=== PATIENT | male | born 1980 | race Caucasian/White ===

== ENCOUNTER 2017-01-24 12:26 | Emergency (ER) | payer SELFPAY ==
--- NOTE | 2017-01-24 13:11 | ER Document Report ---
ED Medical Screen (RME) - General Stated Complaint: POSSIBLE FLU SYMPTOMS Notes: 36 yo flu like symptoms since yesterday. fever, bodyaches, cough, chills, dizzy. no flu shot this season TRAVEL OUTSIDE OF THE [place] IN LAST 30 DAYS: No - Related Data Allergies/Adverse Reactions: No Known Allergies Allergy (Verified 01/24/17 13:06) Physical Exam - Vital signs Vitals: Temp Pulse Resp BP Pulse Ox 98.4 F 85 18 137/83 H 96 01/24/17 12:38 01/24/17 12:38 01/24/17 12:38 01/24/17 12:38 01/24/17 12:38 Course - Vital Signs Vital signs: Temp Pulse Resp BP Pulse Ox 98.4 F 85 18 137/83 H 96 01/24/17 12:38 01/24/17 12:38 01/24/17 12:38 01/24/17 12:38 01/24/17 12:38
--- NOTE | 2017-01-24 14:42 | ER Document Report ---
ED General - General Mode of Arrival: Ambulatory Information source: Patient TRAVEL OUTSIDE OF THE [place] IN LAST 30 DAYS: No - HPI Patient complains to provider of: Fatigue and cold like symptoms Onset: Yesterday Associated symptoms: Other - see above - General Chief Complaint: Cold Symptoms Stated Complaint: POSSIBLE FLU SYMPTOMS Notes: 36 year old male with no prior medical problems presents to the ED complaining of fatigue and flu like symptoms (cough, congestion, rhinorrhea, and body aches ) since yesterday. Patient also reports a fever and states that he last took Tylenol at 2200 last night. Patient denies nausea, vomiting, and diarrhea. Patient does not have a primary care provider. (WALLY KESSLER) - Related Data Allergies/Adverse Reactions: No Known Allergies Allergy (Verified 01/24/17 13:06) Past Medical History - General Information source: Patient - Social History Smoking Status: Never Smoker Family History: Reviewed & Not Pertinent Patient has suicidal ideation: No Patient has homicidal ideation: No - Medical History Medical History: Negative Renal/ Medical History: Denies: Hx Peritoneal Dialysis Surgical Hx: Negative Review of Systems - Review of Systems Constitutional: See HPI, Fever, Malaise EENT: See HPI, Nose congestion, Nose discharge Cardiovascular: No symptoms reported Respiratory: No symptoms reported Gastrointestinal: No symptoms reported. denies: Diarrhea, Nausea, Vomiting Genitourinary: No symptoms reported Male Genitourinary: No symptoms reported Musculoskeletal: No symptoms reported Skin: No symptoms reported Hematologic/Lymphatic: No symptoms reported Neurological/Psychological: No symptoms reported -: Yes All other systems reviewed and negative Physical Exam - General General appearance: Alert In distress: None - HEENT Head: Normocephalic, Atraumatic Eyes: Normal Extraocular movements intact: Yes Pupils: PERRL Ears: Normal External canal: Normal Tympanic membrane: Normal Mouth/Lips: Normal - Respiratory Respiratory status: No respiratory distress Breath sounds: Normal - Cardiovascular Rhythm: Regular Heart sounds: Normal auscultation - Abdominal Inspection: Normal Distension: No distension Tenderness: Nontender - Back Back: Normal - Extremities General upper extremity: Normal inspection, Normal ROM General lower extremity: Normal inspection, Normal ROM - Neurological Neuro grossly intact: Yes Cognition: Normal Orientation: AAOx4 Edmond Coma Scale Eye Opening: Spontaneous Cristina Coma Scale Verbal: Oriented Edmond Coma Scale Motor: Obeys Commands Cristina Coma Scale Total: 15 Speech: Normal - Psychological Associated symptoms: Normal affect, Normal mood - Skin Skin Temperature: Warm Skin Moisture: Dry Skin Color: Normal - Vital signs Vitals: Temp Pulse Resp BP Pulse Ox 98.4 F 85 18 137/83 H 96 01/24/17 12:38 01/24/17 12:38 01/24/17 12:38 01/24/17 12:38 01/24/17 12:38 Course - Re-evaluation Re-evalutation: 01/24/17 18:25 I personally performed the services described in the documentation, reviewed and edited the documentation which was dictated to my scribe in my presence, and it accurately records my words and actions. presents the emergency department with a chief complaint of sore throat fever coughing cold-like symptoms. No documented fever at home well-appearing nontoxic negative HEENT lungs are clear pulse ox is normal negative flu negative chest x-ray supportive care off work today and tomorrow given the family doctor for follow-up and discuss reasons for ED return sooner (NILSA BARKLEY ) - Vital Signs Vital signs: Temp Pulse Resp BP Pulse Ox 98.4 F 85 18 137/83 H 96 01/24/17 12:38 01/24/17 12:38 01/24/17 12:38 01/24/17 12:38 01/24/17 12:38 Discharge - Discharge Clinical Impression: Upper respiratory infection Qualifiers: URI type: unspecified URI Qualified Code(s): J06.9 - Acute upper respiratory infection, unspecified Condition: Stable Disposition: HOME, SELF-CARE Additional Instructions: Upper Respiratory Illness You have a viral infection of the respiratory passages -- a "cold." This common infection causes nasal congestion, drainage, and often sore throat and cough. It is caused by a virus and is highly contagious. The disease usually lasts a week or more, though the worst symptoms are usually over in 3 or 4 days. There is no "cure" for the viral infection -- it must run its course. If there is a complication, such as bacterial infection in the nose, sinuses, middle ear, or bronchial tubes, antibiotics may be required, but antibiotics won 't affect the virus. If you smoke, you should STOP!! Drink plenty of fluids. A humidifier may help. An expectorant medication or decongestant may make you more comfortable. Use acetaminophen or ibuprofen for fever or aches. See the doctor if fever persists over two or three days, if there is any significant worsening of your symptoms, or if you simply fail to improve as expected. Forms: Return to Work Scribe Documentation - Scribe Written by Vianca:: Vianca Pérez, 01/24/2017 [id number] acting as scribe for :: Juliano
[2017-01-24 18:55] VITALS: BP 132/74
== END 2017-01-24 18:30 | disposition home or self-care (01) ==
LOC: ER 12:26
DX: J06.9 Acute upper respiratory infection, unspecified (principal); R53.83 Other fatigue; R05 Cough; R09.81 Nasal congestion; J34.89 Other specified disorders of nose and nasal sinuses; R52 Pain, unspecified; R50.9 Fever, unspecified
CPT/HCPCS: 71020; 87070; 87804; 87880; 99283

== ENCOUNTER 2018-06-21 08:21 | Emergency (ER) | payer OTHER ==
[2018-06-21 08:39] VITALS: BP 139/82
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
[2018-06-21] MEDS ORDERED: IBUPROFEN 800 MG TABLET PO ONE (10:23)
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
== END 2018-06-21 10:38 | disposition home or self-care (01) ==
LOC: ER 08:21
DX: S16.1XXA Strain of muscle, fascia and tendon at neck level, initial encounter (principal); M54.89 Other dorsalgia; R51 Headache; M54.2 Cervicalgia; V49.40XA Driver injured in collision with unspecified motor vehicles in traffic accident, initial encounter
CPT/HCPCS: 72070; 72125; 99284

== ENCOUNTER 2018-07-07 10:01 | Emergency (ER) | payer OTHER ==
[2018-07-07 10:07] VITALS: BP 140/78
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
== END 2018-07-07 10:50 | disposition home or self-care (01) ==
LOC: ER 10:01
DX: S16.1XXD Strain of muscle, fascia and tendon at neck level, subsequent encounter (principal); M54.2 Cervicalgia; V49.40XD Driver injured in collision with unspecified motor vehicles in traffic accident, subsequent encounter
CPT/HCPCS: 99283